=== PATIENT | male | born 1945 | race Caucasian/White ===

== ENCOUNTER 2023-05-26 08:00 | Outpatient (CLI) | payer MEDICARE, OTHER ==
--- NOTE | 2023-05-26 16:51 | XRAY Report ---
PROCEDURE: Hips w/Pelvis 2-3V BL INDICATIONS: LEFT HIP PAIN TECHNIQUE: 3 view(s) of the hip were acquired. COMPARISON: None FINDINGS: Bones: No fractures or dislocations. No suspicious bony lesions. The visualized pelvic ring appear s intact. Moderate to severe bilateral degenerative hip joint space narrowing. Minimal particular os teophytes are present. No erosions. Soft tissues: No suspicious soft tissue calcifications or masses. 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 Reviewed by: Gabriela Gamino MD on 05/26/2023 4:49 PM PST Approved by: Gabriela Gamino MD on 05/26/2023 4:49 PM PST Station ID: [id number]
--- NOTE | 2023-05-26 16:51 | XRAY Report ---
PROCEDURE: Lumbar Spine 2-3V INDICATIONS: CHRONIC LOW BACK PAIN TECHNIQUE: 2 views of the lumbar spine were acquired. COMPARISON: None. FINDINGS: Bones: 5 [id number] vertebrae are present. There is trace retrolisthesis of L1 on L2, L2 on L3 . Multilevel degenerative disc and foraminal narrowing are present most severe at L5-S1. Multilevel a nterior bridging osteophytic are present most prominent at T12-L1, L1-L2, L2-L3. No vertebral body co mpression fractures. No suspicious bony lesions. Soft tissues: Overlying bowel gas pattern is normal. No suspicious soft tissue calcifications. IMPRESSION: Multilevel degenerative changes most severe at L5-S1. Reviewed by: Gabriela Gamino MD on 05/26/2023 4:50 PM PST Approved by: Gabriela Gamino MD on 05/26/2023 4:50 PM PST Station ID: [id number]
== END 2023-05-26 23:59 | disposition home or self-care (01) ==
LOC: DI.N 08:00
PROVIDERS: ATTEND Family Medicine
DX: M16.0 Bilateral primary osteoarthritis of hip (principal); M51.36 Other intervertebral disc degeneration, lumbar region; M51.37 Other intervertebral disc degeneration, lumbosacral region

== ENCOUNTER 2023-07-16 10:30 | Emergency (ER) | payer OTHER ==
[2023-07-16 10:50] VITALS: BP 124/69; O2SAT 99
--- NOTE | 2023-07-16 10:51 | ED Physician Documentation ---
PD HPI Fall - Stated complaint Stated Complaint: GLF - Chief complaint Chief Complaint: Ext Problem - History obtained from History obtained from: Patient - History of Present Illness Mechanism of injury: Tripped (on a stair) Fall distance: Standing position Timing - onset: Yesterday Injury(ies) location: Chest (left ribs), Left Uppper Extremity (shoulder). No: Head, Neck Similar symptoms before: Has not had sx before PD PAST MEDICAL HISTORY - Past Medical History Cardiovascular: Hypertension, Coronary artery disease, Other Other Past Medical History: Cardiac bypass - Past Surgical History Past Surgical History: Yes HEENT: Tonsil/Adenoidectomy - Present Medications Home Medications: Ambulatory Orders Medication Instructions Recorded Confirmed Lisinopril 20 mg PO DAILY 03/17/14 03/17/14 Mometasone Furoate [Asmanex] 220 mcg INH ONCE PRN 03/17/14 03/17/14 atenoloL [Tenormin] 25 mg PO DAILY 03/17/14 03/17/14 Acetaminophen [Acetaminophen Extra 500 mg PO QID PRN #50 tablet 07/16/23 Strength] Albuterol Sulf [Ventolin Hfa 07/16/23 07/16/23 Inhaler] Atorvastatin [Lipitor] 07/16/23 07/16/23 Doxepin [SINEquan] 07/16/23 07/16/23 Gabapentin [Gabapentin ER] 300 mg PO 07/16/23 07/16/23 HYDROcod/ACETAM 5/325 [[place] 5/325] 1 ea PO Q6H PRN #14 tablet 07/16/23 amLODIPine [Norvasc] 10 mg PO DAILY 07/16/23 07/16/23 dexAMETHasone [Decadron] 4 mg PO DAILY #7 tablet 07/16/23 - Allergies Allergies/Adverse Reactions: Allergies Allergy/AdvReac Type Severity Reaction Status Date / Time ampicillin Allergy Edema Verified 03/17/14 10:07 codeine Allergy Edema Verified 03/17/14 10:07 dimethyl sulfoxide * Allergy Edema Verified 03/17/14 10:07 [From Rimso-50] fentanyl Allergy Anaphylaxis Verified 07/16/23 10:39 piroxicam [From Feldene] Allergy Edema Verified 03/17/14 10:07 anesthetic Allergy Anaphylaxis Uncoded 03/17/14 10:07 - Social History Does the pt smoke?: No Smoking Status: Never smoker Does the pt drink ETOH?: No Does the pt have substance abuse?: No - Immunizations Immunizations are current?: Yes - POLST Patient has POLST: No PD ED PE NORMAL - Vitals Vital signs reviewed: Yes - General General: Alert and oriented X 3, No acute distress, Well developed/nourished - HEENT HEENT: Atraumatic - Neck Neck: Supple, no meningeal sign, No bony TTP - Cardiac Cardiac: RRR, No murmur - Respiratory Respiratory: No respiratory distress, Clear bilaterally, Other (left chest wall with tendeness but no deformity nor bruising. ) - Abdomen Abdomen: Soft, Non tender - Derm Derm: Normal color, Warm and dry - Extremities Extremities: Other (left shoulder tender anterior without deformity. pretty good ROM. ) - Neuro Neuro: Alert and oriented X 3, No motor deficit, No sensory deficit, Normal speech Results - Vitals Vitals: Vital Signs - 24 hr 07/16/23 10:33 Temperature 36.1 C L Heart Rate 102 H Respiratory 16 Rate Blood Pressure 124/69 O2 Saturation 99 Oxygen O2 Source Room air - Rads (name of study) shoulder Relevant Findings:: Prelim report reviewed (no acute injury), EMP independent interpretation of test left ribs with chest Relevant Findings:: Prelim report reviewed (no fractures nor lung injury. ), EMP independent interpretation of test PD Medical Decision Making - ED course Complexity details: reviewed results (shoulder xray normal except arthritis. Chest/ribs are normal. ), considered differential (fell and struck shoulder and ribs. No fractures. ), d/w patient Departure - Departure Disposition: 01 Home, Self Care Clinical Impression: Left shoulder pain, Left shoulder strain, Chest wall contusion Condition: Stable Record reviewed to determine appropriate education?: Yes Instructions: ED Contusion Chest Wall, ED Sprain Shoulder Prescriptions: Acetaminophen [Acetaminophen Extra Strength] 500 mg PO QID PRN #50 tablet PRN Reason: Pain dexAMETHasone [Decadron] 4 mg PO DAILY #7 tablet HYDROcod/ACETAM 5/325 [[place] 5/325] 1 ea PO Q6H PRN #14 tablet PRN Reason: Pain Comments: Your x-ray of the shoulder shows some arthritis but no signs of dislocation separation nor fracture. The rib x-rays also show normal lung and no signs of fractures. You will still be sore in the chest wall from injury to the area likely for several days to week or so. The shoulder has been hurting you in the past from arthritis and likely some rotator cuff inflammation. Falling onto all be certainly making it worse right now. Use the sling to help support the shoulder when you are rested or not having too mobile late mobilize. You will not be able to use it well with conjunction with the walker but he can use it at other times to help support. Gentle range of motion of the shoulder periodically through the day without overhead, push pull nor heavy lifting. I would suggest some anti-inflammatories of Decadron daily for a week. This would be an alternative to NSAIDs so that we do not bother your kidneys. 2 this had Tylenol 500 to 650 mg 4 times a day regularly for the next several days to week. In addition add hydrocodone/acetaminophen if needed for worse pain. This would be intended short-term. I sent your prescriptions to your preferred pharmacy. Follow-up with your primary care if not improved well over the next several days to week. My narcotic instructions I am prescribing a short course of narcotic pain medication for you. These are potentially dangerous and addictive medications that should be used carefully. These medications may constipate you. Take an fjbr-[id number]-[id number] stool softener such as docusate twice daily with plenty of water while taking these medications. If you go 24 hours without a bowel movement, take [id number]-[id number] MiraLAX, per package instructions. Do not drink or drive while taking these medications. If you received narcotic or sedating medications while in the emergency department do not drive for 24 hours. Store this medication in a safe, secure place and out of reach of children. It is a violation of federal law to give or sell this medication to another person or to use in a manner other than prescribed. The ED will not refill narcotic prescriptions, including prescriptions lost or stolen. You can dispose of unwanted medications at the [facility]'s office or at several pharmacies such as [facility]. Forms: PCP List Discharge Date/Time: 07/16/23 12:35
--- NOTE | 2023-07-16 11:43 | XRAY Report ---
PROCEDURE: Shoulder 2+V LT INDICATIONS: Fell on shoulder, pain. TECHNIQUE: 3 views of the shoulder were acquired. COMPARISON: Correlation is made with the accompanying imaging. FINDINGS: Bones: No fractures or dislocations. No suspicious bony lesions. Visualized ribs appear intact. A ge-appropriate degenerative changes are seen. Soft tissues: No suspicious soft tissue calcifications. The visualized lungs are within normal limi ts. IMPRESSION: Degenerative changes are seen, without an acute plain film abnormality identified. If it would be helpful for clinical management decision making, please consider a dedicated, schedule d shoulder MRI for further evaluation (assuming that there is no contraindication). Reviewed by: Pramod Bhakta MD on 07/16/2023 10:42 AM [facility] Approved by: Pramod Bhakta MD on 07/16/2023 10:42 AM [facility] Station ID: [id number]
--- NOTE | 2023-07-16 11:44 | XRAY Report ---
PROCEDURE: Ribs w/PA Chest 3+V LT INDICATIONS: fall with left anteriolateral tenderness chest TECHNIQUE: 2 views of the ribs were acquired, along with a single view chest. COMPARISON: Correlation is made with the accompanying imaging. FINDINGS: Surgical changes and devices: Post CABG changes are seen. Bones and chest wall: A marker is placed upon the area of pain. At this site, no fractures are seen. No fractures or dislocations are seen elsewhere. No suspicious bony lesions. Age-appropriate degen erative changes are seen. The overlying soft tissues appear unremarkable. Lungs and pleura: No pleural effusions or pneumothorax. Lungs appear clear. Mediastinum: Mediastinal contours appear normal. Heart size is normal. IMPRESSION: No displaced rib fracture or pneumothorax. Reviewed by: Pramod Bhakta MD on 07/16/2023 10:42 AM [facility]ARIO Approved by: Pramod Bhakta MD on 07/16/2023 10:42 AM ROSARIO Station ID: [id number]
[2023-07-16] MEDS: ACETAMINOPHEN 500 MG TABLET PO STA (12:26)
[2023-07-16] MEDS: dexAMETHasone 4 MG TABLET PO STA (12:26)
== END 2023-07-16 12:35 | disposition home or self-care (01) ==
LOC: ED 10:30
DX: S46.912A Strain of unspecified muscle, fascia and tendon at shoulder and upper arm level, left arm, initial encounter (principal); S20.212A Contusion of left front wall of thorax, initial encounter; W10.9XXA Fall (on) (from) unspecified stairs and steps, initial encounter; I10 Essential (primary) hypertension; Z79.899 Other long term (current) drug therapy
CPT/HCPCS: 71101; 73030; 99284; A9270; J8540